=== PATIENT | male | born 2000 | race Caucasian/White ===

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

== ENCOUNTER 2022-07-24 10:47 | Emergency (ER) | payer BC, SELFPAY ==
[~2022-07-24] VITALS: Ht 180.3 cm; Wt 130.3 kg
[2022-07-24 10:48] VITALS: BP 133/80
== END 2022-07-24 14:56 | disposition home or self-care (01) ==
LOC: M ED 14:06
DX: S90.31XA Contusion of right foot, initial encounter (principal); W22.8XXA Striking against or struck by other objects, initial encounter; Y99.0 Civilian activity done for income or pay; F90.9 Attention-deficit hyperactivity disorder, unspecified type; Z88.1 Allergy status to other antibiotic agents; Z88.2 Allergy status to sulfonamides; Z88.8 Allergy status to other drugs, medicaments and biological substances